=== PATIENT | male | born 1990 | race Asian ===

== ENCOUNTER 2019-11-08 16:48 | Emergency (ER) | payer OTHER ==
[~2019-11-08] VITALS: Ht 172.7 cm; Wt 71.2 kg
[2019-11-08 17:06] VITALS: Ht 172.7 cm; Wt 71.2 kg
[2019-11-08 18:53] VITALS: BP 132/85
== END 2019-11-08 18:53 | disposition home or self-care (01) ==
LOC: ED 16:48
DX: J06.9 Acute upper respiratory infection, unspecified (principal)
CPT/HCPCS: 87804; J1100